=== PATIENT | female | born 1980 | race Two or more races ===

== ENCOUNTER 2021-05-24 11:25 | Outpatient (REF) | payer MEDICAID, SELFPAY ==
[2021-05-24 12:40] LABS: Binax Now Covid-19 Ag Positive (Negative)
[2021-05-24 12:41] LABS: Binax Internal Control QC Valid; Binax Lot number: 9864
== END 2021-05-24 11:26 | disposition home or self-care (01) ==
LOC: HO.LAB 11:25
PROVIDERS: Visit Provider Internal Medicine
DX: Z20.822 Contact with and (suspected) exposure to COVID-19 (principal)
CPT/HCPCS: 36415; C9803